=== PATIENT | male | born 1985 | race African-American/Black ===

== ENCOUNTER 2017-06-05 07:28 | Emergency (ER) | payer SELFPAY ==
[2017-06-05] MEDS ORDERED: Azithromycin 250 MG TAB ONE ×2 (07:46)
[2017-06-05] MEDS ORDERED: cefTRIAXone\\ROCEPHIN 250 MG VIAL ONE (07:46)
[2017-06-05] MEDS ORDERED: Lidocaine 1% PF 5 ML VIAL ONE (07:47)
== END 2017-06-05 08:11 | disposition home or self-care (01) ==
LOC: ERS 07:28
DX: N34.2 Other urethritis (principal); Z87.891 Personal history of nicotine dependence
CPT/HCPCS: 96372; J0696; J2001

== ENCOUNTER 2017-12-26 04:39 | Emergency (ER) | payer SELFPAY ==
[2017-12-26] MEDS ORDERED: Ketorolac Tromethamine 60 MG/2 ML VIAL ONE (05:03)
--- NOTE | 2017-12-26 08:20 | RAD ---
FRONTAL VIEW PELVIS: Clinical history: Pain. FINDINGS: Hip joints are maintained. No abnormal diastasis of sacroiliac joints or symphysis pubis. Soft tissue calcifications project over the pelvis. IMPRESSION: No acute fracture. POS: [id number]
== END 2017-12-26 05:34 | disposition home or self-care (01) ==
LOC: ERS 04:39
DX: S39.91XA Unspecified injury of abdomen, initial encounter (principal); X50.0XXA Overexertion from strenuous movement or load, initial encounter
CPT/HCPCS: 72170; 96372; J1885

== ENCOUNTER 2018-01-11 07:09 | Emergency (ER) | payer SELFPAY ==
[2018-01-11] MEDS ORDERED: Ketorolac Tromethamine 30 MG/ML VIAL ONE (07:48)
[2018-01-11 08:26] LABS: Bilirubin Negative (Negative); Blood, Urine Negative (Negative); Clarity CLEAR (Clear); Glucose, Urine (Dipstick) Negative (Negative); Leukocyte Negative (Negative); Nitrite Negative (Negative); Protein, Urine (Dipstick) Negative (Neg-Trace); Specific Gravity, Urine 1.021 (1.002-1.036)
[2018-01-11 08:27] LABS: #Eosinphils 0.1 thou/uL (0.0-0.7); #Lymphocytes 2.4 thou/uL (1.20-3.40); #Monocytes 0.6 thou/uL (0.11-0.59); #Neutrophils 4.3 thou/uL (1.40-6.50); %Basophils 0.6 % (0.0-1.0); %Eosinophils 1.6 % (0.0-10.0); %Lymphocytes 32.5 % (21.0-51.0); %Monocytes 8.2 % (0.0-10.0); %Neutrophils 57.1 % (42.0-75.0); Hemoglobin 16.1 g/dL (14.0-18.0); Mean Corpuscular HGB CONC 34.4 g/dL (32.0-36.0); Mean Corpuscular Hemoglobin 31.1 pg (27.0-31.0); Mean Corpuscular Volume 90.4 fl (80.0-94.0); Mean Platelet Volume 7.4 fL (7.4-10.4); Platelet Count 252 thou/uL (130-400); RBC Distribution Width 12.6 % (11.5-14.5); White Blood Cell (WBC) Count 7.4 thou/uL (4.8-10.8)
[2018-01-11 08:50] LABS: ALT (SGPT) 19 U/L (8-55); AST (SGOT) 23 U/L (5-34); Albumin 4.3 g/dL (3.5-5.0); Alkaline Phosphatase 63 U/L (40-150); Anion Gap 10 mmol/L (10-20); BUN (Urea Nitrogen) 9 mg/dL (8.9-20.6); Bilirubin, Total 0.3 mg/dL (0.2-1.2); Calc. Creatinine Clearance 0 mL/min (70-130); Calcium 9.4 mg/dL (7.8-10.44); Carbon Dioxide 26 mmol/L (22-29); Chloride 108 mmol/L (98-107); Estimated GFR-MDRD Greater than 90; Globulin 3.3 g/dL (2.4-3.5); Glucose 100 mg/dL (70-105); Potassium 3.9 mmol/L (3.5-5.1); Protein, Total 7.6 g/dL (6.0-8.3); Sodium 140 mmol/L (136-145)
--- NOTE | 2018-01-11 10:48 | CT ---
CT OF ABDOMEN AND PELVIS PERFORMED WITH IV CONTRAST ENHANCEMENT: Date: 01/11/18 HISTORY: Right groin pain. FINDINGS: The lung bases are clear. The liver, spleen, pancreas, and gallbladder regions appear unremarkable. Right and left adrenal glands, and right and left kidneys are normal in appearance. There is a lack o f intra-abdominal fat. I do not appreciate any significant periaortic or mesenteric lymphadenopathy. A somewhat high bifurcation of the aorta is incidentally noted, felt to be an incidental finding. CT of pelvis was performed with contrast enhancement. Lack of intra-abdominal fat again degrades deta il. No free fluid. Appendix is difficult to identify, but I see what I believe to be an air-filled ap pendix. Lack of fat significantly obscures any detail. Muscle groups appear symmetric. No obvious sig ns of any hematoma. No acute osseous findings. IMPRESSION: No acute abnormalities of the abdomen or pelvis. POS: [facility]
[2018-01-11] MEDS ORDERED: ISOVUE-370 76%-LOCM 1 ML ONE (12:09)
== END 2018-01-11 10:20 | disposition home or self-care (01) ==
LOC: ERS 07:09
DX: S39.011A Strain of muscle, fascia and tendon of abdomen, initial encounter (principal); X50.0XXA Overexertion from strenuous movement or load, initial encounter; Y99.0 Civilian activity done for income or pay
CPT/HCPCS: 74177; 80053; 81003; 85025; 96374; J1885

== ENCOUNTER 2020-01-29 09:49 | Emergency (ER) | payer OTHER, SELFPAY ==
[2020-01-29 18:10] LABS: SARS-CoV-2 MS2 Positive; SARS-CoV-2 N Gene Negative; SARS-CoV-2 S Gene Negative; SARS-CoV-2 orf1ab Negative
== END 2020-01-29 10:56 | disposition home or self-care (01) ==
LOC: ERS 09:49
DX: J02.9 Acute pharyngitis, unspecified (principal); Z20.828 Contact with and (suspected) exposure to other viral communicable diseases
CPT/HCPCS: 87635; 99283; U0003

== ENCOUNTER 2020-07-25 07:10 | Emergency (ER) | payer SELFPAY ==
[2020-07-25] MEDS ORDERED: Dicyclomine 20 MG TAB ONE (07:57)
[2020-07-25 08:27] LABS: #Basophils 0.1 thou/uL (0.0-0.2); #Eosinphils 0.2 thou/uL (0.0-0.7); #Lymphocytes 2.1 thou/uL (1.20-3.40); #Monocytes 0.6 thou/uL (0.11-0.59); #Neutrophils 4.3 thou/uL (1.40-6.50); %Basophils 1.9 % (0.0-1.0); %Eosinophils 2.3 % (0.0-10.0); %Lymphocytes 29.1 % (21.0-51.0); %Monocytes 7.9 % (0.0-10.0); %Neutrophils 58.8 % (42.0-75.0); Hemoglobin 18.1 g/dL (14.0-18.0); Mean Corpuscular HGB CONC 33.5 g/dL (32.0-36.0); Mean Corpuscular Hemoglobin 30.7 pg (27.0-31.0); Mean Corpuscular Volume 91.5 fL (78.0-98.0); Platelet Count 224 thou/uL (130-400); RBC Distribution Width 12.8 % (11.5-14.5); Red Blood Cell (RBC) Count 5.89 mill/uL (4.70-6.10); White Blood Cell (WBC) Count 7.4 thou/uL (4.8-10.8)
[2020-07-25 08:46] LABS: ALT (SGPT) 17 U/L (8-55); AST (SGOT) 23 U/L (5-34); Albumin 4.2 g/dL (3.5-5.0); Alkaline Phosphatase 61 U/L (40-110); Anion Gap 10 mmol/L (10-20); BUN (Urea Nitrogen) 12 mg/dL (8.9-20.6); Bilirubin, Total 0.8 mg/dL (0.2-1.2); Calc. Creatinine Clearance 0 mL/min (70-130); Calcium 9.2 mg/dL (7.8-10.44); Carbon Dioxide 29 mmol/L (22-29); Chloride 104 mmol/L (98-107); Estimated GFR-MDRD 84; Globulin 3.3 g/dL (2.4-3.5); Glucose 105 mg/dL (70-105); Lipase 14 U/L (8-78); Protein, Total 7.5 g/dL (6.0-8.3); Sodium 139 mmol/L (136-145)
[2020-07-25 12:55] LABS: SARS-CoV-2 MS2 Positive; SARS-CoV-2 N Gene Negative; SARS-CoV-2 S Gene Negative; SARS-CoV-2 by NAA Not Detected (NotDetected); SARS-CoV-2 orf1ab Negative
== END 2020-07-25 09:18 | disposition home or self-care (01) ==
LOC: ERS 07:10
DX: K29.00 Acute gastritis without bleeding (principal); F17.210 Nicotine dependence, cigarettes, uncomplicated
CPT/HCPCS: 36415; 80053; 83690; 85025; 87635; 99284; U0003